=== PATIENT | male | born 1950 | race Caucasian/White ===

== ENCOUNTER 2018-10-27 13:55 | Observation (INO) ==
--- NOTE | 2018-10-27 15:00 | Emergency Department Note ---
Disposition Clinical Impression: Syncope Disposition: Admitted As Inpatient Condition: Good Time of Disposition: 16:46 Syncope HPI - General Chief Complaint: ED Dizziness Stated Complaint: DIZZINESS, FELL IN SHOWER Time Seen by Provider: 10/27/18 14:05 Source: patient Mode of arrival: ambulatory Limitations: no limitations Nursing Notes Reviewed: Yes Vital Signs Reviewed: Yes - History of Present Illness HPI Narrative: 68 y/o male while taking a shower turned and collapsed and couldn't get up assisted by to the living room after placing on his uderware. Pt sataes that he got light headed eased down with the aid of the toilet and didnt sustain injuries but then had no global strength was slowly able to get up with hs . then in the living room again turned head slowly and episode occurred again and profound weakness but no LOC legs were weak and no strength. No prior hx of these type of events with two events got dressed then here to er for evaluation all systems reviewed and other chun neg Pt Subjective Complaint: felt faint, almost passed out, collapsed Onset (ago): hour(s) Number of episodes: 2 Duration: minutes(s) (15) Description of Event: other (collapsed) Prodromal Symptoms: lightheaded, palpitations, vertigo Witnessed: yes - by bystander () Context: at rest, other (showering) Injuries Sustained Associated with Event: none Current Symptoms: back to baseline History: none Treatments prior to arrival: none Associated trauma secondary to event: No - Related Data Home Medications Medication Instructions Recorded Confirmed RX: Amlodipine Besylate 10 mg PO DAILY 10/27/18 10/27/18 RX: Lisinopril [Zestril] 20 mg PO DAILY 10/27/18 10/27/18 RX: Metformin HCl [Fortamet] 1,000 mg PO BID 10/27/18 10/27/18 Previous Rx's Medication Instructions Recorded RX: Aspirin 81 mg PO DAILY tab.chew 10/29/18 Allergies Allergy/AdvReac Type Severity Reaction Status Date / Time No Known Allergies Allergy Verified 10/27/18 13:58 All systems ED: reviewed and negative except as stated. Review of Systems: As Per HPI Constitutional: Reports: weakness. Denies: fever, chills Eyes: Denies: eye pain ENT ED: Denies: ear pain Cardiovascular: Denies: chest pain, palpitations Respiratory: Denies: cough, dyspnea Gastrointestinal: Denies: abdominal pain, nausea, vomiting Genitourinary: Denies: urgency, dysuria, frequency Musculoskeletal: Denies: back pain, neck pain Integumentary: Denies: rash, abrasion Neurological: Reports: weakness, vertigo. Denies: headache Psychiatric: Denies: anxiety Endocrine: Denies: fatigue Hematological/Lymphatic: Denies: easy bleeding Allergic/Immunologic: Denies: facial swelling Past Medical History - Past Medical History Attestation: Yes The following information was validated with the patient. Source: patient, old records reviewed, nursing notes reviewed Medical history: Reports: hypertension Psychiatric history: Reports: no psych history - Social History Smoking Status: Never smoker Alcohol use: Reports: none Drug use: Reports: none Physical Exam - General Limitations: no limitations General appearance: alert, in no apparent distress, anxious - Head Head exam: atraumatic, normocephalic, normal inspection - Eye Eye exam: Present: normal appearance, PERRL, EOMI - ENT ENT exam: normal exam, normal oropharynx, mucous membranes moist, TM's normal bilaterally, normal external ear exam - Neck Neck exam: Present: normal inspection, full ROM, trachea midline - Chest Chest inspection: Present: normal inspection, symmetric chest wall rise - Respiratory Respiratory exam: Present: normal lung sounds bilaterally. Absent: wheezes, prolonged expiratory phase - Cardiovascular Cardiovascular exam: Present: regular rate, normal rhythm, normal heart sounds - Abdominal Exam Abdominal exam: Present: soft, Non-Tender, normal bowel sounds. Absent: mass, pulsatile mass - Extremities Exam Extremities exam: Present: normal inspection, full ROM, normal capillary refill. Absent: tenderness, pedal edema, joint swelling, calf tenderness - Expanded Lower Extremity Exam Gait: observed and normal - Back Exam Back exam: Present: normal inspection, full ROM - Neurological Exam Neurological exam: Present: alert, oriented X3, normal gait - Psychiatric Psychiatric exam: Present: normal affect, normal mood - Skin Skin exam: Present: warm, dry, intact, normal color Course Course Narrative: Pt was seen and examined testing done pt asymptomatic in the er but clearly describes two events of intermittent weakness recommended observation admitted and transfered to [facility] Vital Signs Temperature 97.5 F L 10/27/18 14:00 Pulse Rate 63 10/27/18 14:00 Respiratory Rate 16 10/27/18 14:00 Blood Pressure 162/92 10/27/18 14:00 O2 Sat by Pulse Oximetry 97 10/27/18 14:00 Temperature 98.2 F 10/29/18 06:33 Pulse Rate 62 10/29/18 06:33 Respiratory Rate 16 10/29/18 06:33 Blood Pressure 171/94 10/29/18 06:33 O2 Sat by Pulse Oximetry 94 10/29/18 06:33 Oxygen Delivery Oxygen Delivery Room Air Syncope - MDM Narrative Medical decision making narrative: vertigo tia - Differential Diagnosis Likely: syncope due to orthostatic hypotension, vasovagal syncope, dehydration/metabolic disorder - Medical Records Medical records reviewed: Yes I reviewed the patient's medical records. - Lab Data Lab results reviewed: Yes I reviewed the patient's lab results. Result diagrams: 10/29/18 05:35 10/29/18 05:35 Lab Results 10/27/18 10/27/18 10/27/18 Range/Units 14:20 14:22 14:55 WBC 9.8 (4.3-11.1) K/mcL RBC 5.23 (4.19-5.50) M/mcL Hgb 16.3 (12.9-16.9) g/dL Hct 47.5 (37.5-50.1) % MCV 90.8 (83.0-100.0) fL MCH 31.2 (28.0-33.3) pg MCHC 34.3 (31.6-35.5) g/dL RDW 12.0 (11.5-14.5) % Plt Count 154 (140-400) K/mcL MPV 10.9 (9.4-12.4) fL Immature Gran % 0.3 (0-4) % Seg Neutrophils % 83.3 % Lymphocytes % 11.6 % Monocytes % 4.3 % Eosinophils % 0.1 % Basophils % 0.4 % Neutrophils # 8.1 (1.6-8.9) K/mcL Lymphocytes # 1.1 (0.6-4.6) K/mcL Monocytes # 0.4 (0.0-1.3) K/mcL Eosinophils # 0.0 (0.0-0.6) K/mcL Basophils # 0.0 (0.0-0.2) K/mcL PT (9.4-12.1) Seconds INR APTT (26.0-36.0) Seconds Sodium (136-145) mEq/L Potassium (3.5-5.1) mEq/L Chloride (98-107) mEq/L Carbon Dioxide (23-29) mEq/L BUN (8-23) mg/dL Creatinine (0.70-1.30) mg/dL Est GFR ( Amer) (> 60) Est GFR (Non-Af Amer) (> 60) BUN/Creatinine Ratio (6-26) Glucose (70-105) mg/dL POC Glucose 184 H 195 H (70-99) mg/dL Calculated Osmolality (280-300) Calcium (8.6-10.3) mg/dL Total Bilirubin (0.3-1.0) mg/dL AST (13-39) Units/L ALT (7-52) Units/L Alkaline Phosphatase (34-104) Units/L Troponin I (< 0.04) ng/mL Serum Total Protein (6.4-8.9) g/dL Albumin (3.5-5.7) g/dL Globulin (2.4-3.5) g/dL Albumin/Globulin Ratio (1.1-2.2) TSH (0.340-5.600) mcIU/mL 10/27/18 10/27/18 Range/Units 14:55 14:55 WBC (4.3-11.1) K/mcL RBC (4.19-5.50) M/mcL Hgb (12.9-16.9) g/dL Hct (37.5-50.1) % MCV (83.0-100.0) fL MCH (28.0-33.3) pg MCHC (31.6-35.5) g/dL RDW (11.5-14.5) % Plt Count (140-400) K/mcL MPV (9.4-12.4) fL Immature Gran % (0-4) % Seg Neutrophils % % Lymphocytes % % Monocytes % % Eosinophils % % Basophils % % Neutrophils # (1.6-8.9) K/mcL Lymphocytes # (0.6-4.6) K/mcL Monocytes # (0.0-1.3) K/mcL Eosinophils # (0.0-0.6) K/mcL Basophils # (0.0-0.2) K/mcL PT 11.6 (9.4-12.1) Seconds INR 1.0 APTT 32.3 (26.0-36.0) Seconds Sodium 134 L (136-145) mEq/L Potassium 4.4 (3.5-5.1) mEq/L Chloride 100 (98-107) mEq/L Carbon Dioxide 27 (23-29) mEq/L BUN 19 (8-23) mg/dL Creatinine 1.13 (0.70-1.30) mg/dL Est GFR ( Amer) > 60 (> 60) Est GFR (Non-Af Amer) > 60 (> 60) BUN/Creatinine Ratio 17 (6-26) Glucose 221 H (70-105) mg/dL POC Glucose (70-99) mg/dL Calculated Osmolality 287 (280-300) Calcium 10.9 H (8.6-10.3) mg/dL Total Bilirubin 0.9 (0.3-1.0) mg/dL AST 15 (13-39) Units/L ALT 19 (7-52) Units/L Alkaline Phosphatase 59 (34-104) Units/L Troponin I < 0.03 (< 0.04) ng/mL Serum Total Protein 7.0 (6.4-8.9) g/dL Albumin 4.4 (3.5-5.7) g/dL Globulin 2.6 (2.4-3.5) g/dL Albumin/Globulin Ratio 1.7 (1.1-2.2) TSH 1.363 (0.340-5.600) mcIU/mL - Radiology Data Radiology results reviewed: Yes I reviewed the patient's radiology results. Received a phone call from radiology Dr. Alcantar CT of the head negative for acute intracranial etiology I received and reviewed the films with him and agree Critical Care Time Critical Care Time: No
[2018-10-27 15:05] LABS: Basophils % 0.4 %; Eosinophils % 0.1 %; Hematocrit 47.5 % (37.5-50.1); Hemoglobin 16.3 g/dL (12.9-16.9); Immature Granulocytes % 0.3 % (0-4); Lymphocytes # 1.1 K/mcL (0.6-4.6); Lymphocytes % 11.6 %; Mean Corpuscular HGB Conc 34.3 g/dL (31.6-35.5); Mean Corpuscular Hemoglobin 31.2 pg (28.0-33.3); Mean Corpuscular Volume 90.8 fL (83.0-100.0); Mean Platelet Volume 10.9 fL (9.4-12.4); Monocytes # 0.4 K/mcL (0.0-1.3); Monocytes % 4.3 %; Neutrophils # 8.1 K/mcL (1.6-8.9); Platelet Count 154 K/mcL (140-400); Red Blood Count 5.23 M/mcL (4.19-5.50); Segmented Neutrophils % 83.3 %
[2018-10-27 15:16] LABS: Prothrombin Time 11.6 Seconds (9.4-12.1)
[2018-10-27 15:19] LABS: Activated Partial Thrombo Time 32.3 Seconds (26.0-36.0)
[2018-10-27 15:26] LABS: Alanine Aminotransferase 19 Units/L (7-52); Albumin 4.4 g/dL (3.5-5.7); Albumin/Globulin Ratio 1.7 (1.1-2.2); Alkaline Phosphatase 59 Units/L (34-104); Aspartate Amino Transferase 15 Units/L (13-39); BUN/Creatinine Ratio 17 (6-26); Bilirubin,Total 0.9 mg/dL (0.3-1.0); Blood Urea Nitrogen 19 mg/dL (8-23); Calcium 10.9 mg/dL (8.6-10.3); Carbon Dioxide 27 mEq/L (23-29); Chloride 100 mEq/L (98-107); Globulin 2.6 g/dL (2.4-3.5); Glucose 221 mg/dL (70-105); Osmolality,Calculated 287 (280-300); Potassium 4.4 mEq/L (3.5-5.1); Sodium 134 mEq/L (136-145); eGFR For Non-African Americans > 60 (> 60)
[2018-10-27 15:28] LABS: Troponin I < 0.03 ng/mL (< 0.04)
[2018-10-27 15:41] LABS: Thyroid Stimulating Hormone 1.363 mcIU/mL (0.340-5.600)
[2018-10-27] MEDS ORDERED: *HR* Dextrose 50 % in Water (Vial) 50 ML VIAL IVP PRN (17:04)
[2018-10-27] MEDS ORDERED: D5% in Water 1,000 ML IVC PRN (17:04)
[2018-10-27] MEDS ORDERED: Ondansetron 4 MG/2 ML VIAL IVP PRN (17:04)
[2018-10-27] MEDS ORDERED: Dextrose Gel 15 GM/37.5 ML TUBE PO PRN ×2 (17:04)
[2018-10-27] MEDS ORDERED: Naloxone 0.4 MG/ML INJ IVP PRN (17:04)
[2018-10-27] MEDS ORDERED: amLODIPine 5 MG TABLET PO ONE (20:08)
[2018-10-28 05:59] LABS: Basophils # 0.1 K/mcL (0.0-0.2); Basophils % 0.7 %; Eosinophils # 0.1 K/mcL (0.0-0.6); Eosinophils % 1.5 %; Hematocrit 42.6 % (37.5-50.1); Hemoglobin 14.6 g/dL (12.9-16.9); Immature Granulocytes % 0.4 % (0-4); Lymphocytes # 1.4 K/mcL (0.6-4.6); Lymphocytes % 19.3 %; Mean Corpuscular HGB Conc 34.3 g/dL (31.6-35.5); Mean Corpuscular Hemoglobin 31.4 pg (28.0-33.3); Mean Corpuscular Volume 91.6 fL (83.0-100.0); Mean Platelet Volume 10.7 fL (9.4-12.4); Monocytes # 0.6 K/mcL (0.0-1.3); Monocytes % 7.5 %; Neutrophils # 5.2 K/mcL (1.6-8.9); Platelet Count 141 K/mcL (140-400); Red Blood Count 4.65 M/mcL (4.19-5.50); Red Cell Distribution Width 12.1 % (11.5-14.5); Segmented Neutrophils % 70.6 %
[2018-10-28 06:15] LABS: Calcium 10.5 mg/dL (8.6-10.3); Potassium 4.1 mEq/L (3.5-5.1)
[2018-10-28] MEDS: *HR* Metformin 500 MG TABLET PO SCH ×3 (08:42→20:23)
[2018-10-28] MEDS: amLODIPine 5 MG TABLET PO SCH (08:43)
[2018-10-28] MEDS: Insulin LISPRO 300 UNITS/3 ML VIAL SQ SCH ×3 (08:43→17:01)
[2018-10-28] MEDS: Lisinopril 20 MG TABLET PO SCH (08:43)
--- NOTE | 2018-10-28 10:55 | Internal Med History&Physical ---
Date of Encounter: 10/28/18 Time of Encounter: 10:10 Assessment and Plan (1) Dizziness Current visit: Yes Status: Acute Subjectively improved. Unremarkable neurologic exam and head CT. MRI of head will be ordered to further evaluate. (2) Neutrophilia Current visit: Yes Status: Acute WBC normal but left shift on labs in ER. Follow-up labs today show resolution of neutrophilia with WBC remaining normal. Continue to monitor. (3) Azotemia Current visit: Yes Status: Acute BUN and creatinine have risen to 25 and 1.43 respectively with estimated GFR 49. IV fluids will be started and renal indices rechecked in a.m. (4) Hypercalcemia Current visit: Yes Status: Acute Calcium level 10.9 with albumin 4.4 on admission. Repeat calcium decreased slightly to 10.5. Recheck in a.m. (5) Hypertension Current visit: Yes Status: Chronic Continue amlodipine and lisinopril and monitor blood pressure. Qualifiers: Hypertension type: essential hypertension Qualified Code(s): I10 - Essential (primary) hypertension (6) DM type 2 (diabetes mellitus, type 2) Current visit: Yes Status: Chronic Check hemoglobin A1c. Continue metformin. Qualifiers: Diabetes mellitus skilled nursing insulin use: without skilled nursing use Diabetes mellitus complication status: without complication Qualified Code(s): E11.9 - Type 2 diabetes mellitus without complications Internal Medicine - H&P: HPI Chief complaint: Dizziness, fall, weakness Admitted From: Emergency Dept Plans for Post Hospital Care: Home History of present illness: Mr. Barrios is a 68 year old male who came to emergency room stating he had a fall in the shower. He states he turned 180 degrees while standing and immediately became off balance. He denies syncope, near-syncope, or true vertigo sensation. He fell in the tub without significant injury. His heard the fall and came to assist him. He dressed and sat in a chair and fell asleep. Upon awakening he try to go to the bathroom but required his 's assistance since he was still significantly off balance while walking. He came to emergency room and was evaluated and admitted to [facility] for ongoing care needs. He states he feels improved at the present time but not back to his baseline. He denies previous similar episodes. He denies recent URI infections. He had no head trauma with the fall or previously. He denies large distribution strokes or seizures. Past Med Surg Social Fam HX - Past Medical History Medical history: hypertension Psychiatric history: no psych history - Social History Smoking Status: Never smoker Smokeless Tobacco Status: No Alcohol use: none Drug use: none Internal Medicine - H&P: Meds Amlodipine Besylate 10 mg PO DAILY 10/27/18 [History] Lisinopril [Zestril] 20 mg PO DAILY 10/27/18 [History] Metformin HCl [Fortamet] 1,000 mg PO BID 10/27/18 [History] Allergy/AdvReac Type Severity Reaction Status Date / Time No Known Allergies Allergy Verified 10/27/18 13:58 All Systems PM: A 10-system review of systems was performed and is negative for pertinent findings except as documented above in the HPI. Review of systems: Gen.: He states his weight has decreased approximately 18 pounds in the past 6 months but that it has stabilized in the past 2 months. Weight loss was unintentional. Cardiovascular: He has hypertension but denies PA heart failure angina DVT or pulmonary embolus Respiratory: He is a lifelong nonsmoker and denies chronic lung disease GI: He denies disorders of his liver gallbladder or exocrine pancreas : He has had kidney stones remotely. He denies other kidney bladder prostate disorders Neurologic: As per history of present illness Endocrine: He was diagnosed with DM 2 approximately 2010. He denies thyroid disease or hyperlipidemia Hematology/oncology: Denies blood disorders cancers or anemia Psychiatric: He has occasional feelings of anxiety but does not take medication. He denies depression or other mental health issues. [place] skeletal: He denies arthritis gout or other bone joint or muscle disorders. - Constitutional Vitals: Temp Pulse Resp BP Pulse Ox 98.1 F 64 16 143/81 95 10/28/18 07:52 10/28/18 07:52 10/28/18 07:52 10/28/18 07:52 10/28/18 07:52 Exam: Gen.: He is a well-developed well-nourished male resting comfortably in bed who appears in no acute distress HEENT: Head is atraumatic and normocephalic. Eyes: EOMI. There is no scleral icterus. Mouth: Mucosa is moist. Neck: Supple and nontender. There is no thyromegaly or adenopathy noted. No carotid bruits are heard. Heart: Regular without murmurs gallops or ectopics. Lungs: No wheezes or crackles are heard. Abdomen: He has a midline ventral abdominal hernia on Valsalva maneuver. It is easily reducible. No masses or guarding are noted. Extremities: There is no cyanosis edema or clubbing noted. Dorsalis pedis and posterior tibial pulses are 1-2 over 2 bilaterally. Neurologic: Mental status: He is talkative and a good historian. Cranial n erves: Smile is symmetric. Forehead wrinkles bilaterally. Tongue protrudes midline. EOMI. Motor: There is no pronator drift. Rapid finger movements are intact symmetrically. Ankle flexion and extension strength against resistance is symmetric. He is able to lift both legs off the bed. Cerebellar: Finger to nose is intact bilaterally. Skin: Warm and dry Internal Med - H&P Results - Labs CBC & Chem 7: 10/28/18 05:30 10/28/18 05:30 Labs: Short CBC 10/27/18 10/28/18 Range/Units 14:55 05:30 WBC 9.8 7.4 (4.3-11.1) K/mcL Hgb 16.3 14.6 D (12.9-16.9) g/dL Hct 47.5 42.6 (37.5-50.1) % Plt Count 154 141 (140-400) K/mcL Neutrophils # 8.1 5.2 (1.6-8.9) K/mcL BMP 10/27/18 10/28/18 14:55 05:30 Sodium 134 L 138 Potassium 4.4 4.1 Chloride 100 104 Carbon Dioxide 27 28 BUN 19 25 H Creatinine 1.13 1.43 H Glucose 221 H 212 H Calcium 10.9 H 10.5 H Cardiac Enzymes 10/27/18 Range/Units 14:55 Troponin I < 0.03 (< 0.04) ng/mL Liver Function 10/27/18 Range/Units 14:55 Total Bilirubin 0.9 (0.3-1.0) mg/dL AST 15 (13-39) Units/L ALT 19 (7-52) Units/L Alkaline Phosphatase 59 (34-104) Units/L Albumin 4.4 (3.5-5.7) g/dL - Impressions ITS Impressions Chest X-Ray 10/27/18 14:43 IMPRESSION: Low lung volumes resulting in bibasilar atelectasis D/ / Austin Castano MD / Austin Castano MD Interpreting Provider: Austin Castano MD Head CT 10/27/18 14:43 IMPRESSION: Atrophy and mild small vessel ischemic disease. Findings were discussed with Hanane Cormier at 15:44 on 10/27/2018. D/ / David Alcantar MD / David Alcantar MD Interpreting Provider: David Alcantar MD
[2018-10-28 16:50] LABS: Estimated Average Glucose 192 mg/dl; Hemoglobin A1C 8.3 %
[2018-10-28] MEDS: Aspirin 81 MG TAB.CHEW PO SCH (21:30)
[2018-10-29 06:15] LABS: Basophils # 0.1 K/mcL (0.0-0.2); Basophils % 0.8 %; Eosinophils # 0.1 K/mcL (0.0-0.6); Eosinophils % 2.3 %; Hemoglobin 13.9 g/dL (12.9-16.9); Immature Granulocytes % 0.2 % (0-4); Lymphocytes # 1.5 K/mcL (0.6-4.6); Lymphocytes % 25.5 %; Mean Corpuscular HGB Conc 33.9 g/dL (31.6-35.5); Mean Corpuscular Hemoglobin 31.4 pg (28.0-33.3); Mean Corpuscular Volume 92.8 fL (83.0-100.0); Mean Platelet Volume 11.4 fL (9.4-12.4); Monocytes # 0.5 K/mcL (0.0-1.3); Monocytes % 7.7 %; Neutrophils # 3.8 K/mcL (1.6-8.9); Platelet Count 132 K/mcL (140-400); Red Blood Count 4.42 M/mcL (4.19-5.50); Red Cell Distribution Width 12.2 % (11.5-14.5); Segmented Neutrophils % 63.5 %
[2018-10-29 06:36] VITALS: BP 171/94
[2018-10-29 06:38] LABS: Alanine Aminotransferase 16 Units/L (7-52); Albumin 3.8 g/dL (3.5-5.7); Albumin/Globulin Ratio 1.6 (1.1-2.2); Alkaline Phosphatase 47 Units/L (34-104); Aspartate Amino Transferase 14 Units/L (13-39); BUN/Creatinine Ratio 19 (6-26); Bilirubin,Total 0.9 mg/dL (0.3-1.0); Blood Urea Nitrogen 23 mg/dL (8-23); Carbon Dioxide 27 mEq/L (23-29); Chloride 105 mEq/L (98-107); Globulin 2.4 g/dL (2.4-3.5); Glucose 137 mg/dL (70-105); Osmolality,Calculated 288 (280-300); Sodium 136 mEq/L (136-145); Total Protein 6.2 g/dL (6.4-8.9); eGFR For Non-African Americans 58 (> 60)
[2018-10-29] MEDS: Lisinopril 20 MG TABLET PO SCH (08:35)
[2018-10-29] MEDS: amLODIPine 5 MG TABLET PO SCH (08:35)
[2018-10-29] MEDS: *HR* Metformin 500 MG TABLET PO SCH (08:36)
[2018-10-29] MEDS: Aspirin 81 MG TAB.CHEW PO SCH (08:36)
[2018-10-29] MEDS: Insulin LISPRO 300 UNITS/3 ML VIAL SQ SCH ×2 (08:36→11:32)
--- NOTE | 2018-10-29 13:00 | Discharge Summary ---
Date of Encounter: 10/29/18 Time of Encounter: 12:48 - Discharge Diagnosis (1) CVA (cerebral vascular accident) Priority: Primary Status: Acute Qualifiers: CVA mechanism: unspecified Qualified Code(s): I63.9 - Cerebral infarction, unspecified (2) Dizziness Priority: Secondary Status: Acute (3) Neutrophilia Priority: Secondary Status: Acute (4) Azotemia Priority: Secondary Status: Acute (5) Hypercalcemia Priority: Secondary Status: Resolved (6) Hypertension Priority: Secondary Status: Chronic Qualifiers: Hypertension type: essential hypertension Qualified Code(s): I10 - Essential (primary) hypertension (7) DM type 2 (diabetes mellitus, type 2) Priority: Secondary Status: Chronic 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 Barrios is a 68 year old male who came to emergency room stating he had a fall in the shower. He states he turned 180 degrees while standing and immediately became off balance. He denies syncope, near-syncope, or true vertigo sensation. He fell in the tub without significant injury. His heard the fall and came to assist him. He dressed and sat in a chair and fell asleep. Upon awakening he try to go to the bathroom but required his 's assistance since he was still significantly off balance while walking. He came to emergency room and was evaluated and admitted to [facility] for ongoing care needs. Initial orders were written by the emergency room physician. I saw him on October 28 and performed a history and physical. MRI of brain was done to further evaluate his instability. There were multiple small foci recent infarcts in the right cerebellar hemisphere, right posterior temporal occipital region, and in the left parietal cortex. There were also multiple old infarcts seen as well as multifocal small vessel ischemic changes. He was started on aspirin 81 mg daily. PT and OT evaluations were done and recommended no further inpatient or outpatient treatment. I recommended he follow with neurology for further evaluation. Appointment was made for him to see a neurologist at [facility] November 12. Echocardiogram showed LVEF of 60%. There is mild LV diastolic dysfunction with E/A ratio of 0.7. No significant valvular abnormality was seen. Carotid Doppler study showed 40-59% stenosis in the right proximal ICA and mid ICA. The left carotid system had nonstenotic plaque. IV fluids were given. Creatinine cr to 1.43 on October 28 but had decreased to 1.23 on October 29. I suspect he has chronic kidney disease stage 2-3. His PCP can monitor. On October 29 he felt stable for discharge home. He will follow with his PCP Zechariah Caal CNP within 1 week. He will follow with neurologist as per above. I told him he should not drive until cleared by neurologist. - Time Spent with Patient Total time spent providing and/or coordinating discharge services: - Discharge Medications Prescriptions: New Aspirin 81 mg PO DAILY tab.chew Continue Lisinopril [Zestril] 20 mg PO DAILY Amlodipine Besylate 10 mg PO DAILY Metformin HCl [Fortamet] 1,000 mg PO BID Home Medications: Amlodipine Besylate 10 mg PO DAILY 10/27/18 [History] Lisinopril [Zestril] 20 mg PO DAILY 10/27/18 [History] Metformin HCl [Fortamet] 1,000 mg PO BID 10/27/18 [History] Aspirin 81 mg PO DAILY tab.chew 10/29/18 [Rx] Allergies/Adverse Reactions: Allergy/AdvReac Type Severity Reaction Status Date / Time No Known Allergies Allergy Verified 10/27/18 13:58 Date of admission: 10/27/18 16:59 Primary care physician: Zechariah Caal CNP Consults: 10/29/18 09:13 Consult to Occupational Therapy [CONS] Routine Comment: Evaluate, develop and implement POC Reason for Consult: CVA Does patient have active BEDREST order?: No Is patient medically & hemodynamically stable?: Yes Patient assessed for mobility or mobilized this visit?: Yes Consult to Physical Therapy [CONS] Routine Comment: Evaluate, develop and implement POC Reason for Consult: CVA Does patient have active BEDREST order?: No Is patient medically & hemodynamically stable?: Yes Patient assessed for mobility or mobilized this visit?: Yes - Constitutional Vitals: Temp Pulse Resp BP Pulse Ox 98.2 F 62 16 171/94 94 10/29/18 06:33 10/29/18 06:33 10/29/18 06:33 10/29/18 06:33 10/29/18 06:33 - Patient Status Disposition: Home, Self-Care Condition: Good - Discharge Instructions Follow Up With: Vanessa Ramos MD [Partnered Physician] - 11/12/18 9:00 am (Neurology consultation) Zechariah Caal, SHAYLA [Primary Care Provider] - 1 week - Diet and Activity Activity: resume usual activities as tolerated Diet: advance to your usual diet
--- NOTE | 2018-10-29 17:49 | Electrocardiograph Report ---
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
== END 2018-10-29 13:55 | disposition home or self-care (01) ==
LOC: EMEROOPIK 13:55 → INPPIK 13:55
PROVIDERS: ADMIT Internal Medicine; ATTEND Internal Medicine